=== PATIENT | male | born 1965 | race Caucasian/White ===

== ENCOUNTER → 2023-08-27 | Outpatient (CLI) | payer BC ==
[~2023-08-27] MED LIST: ACYCLOVIR; CIPRO 500MG TA500 MG PO; DEPO-TESTOS100 MG/ML IM; FLOMAX 0.40.4 MG/CAP PO; HYZAAR 12.5 MG-1 TAB PO; LEVSIN0.125 M1 PO; LOPID 600M600 MG/TAB PO; NORCO 325 MG-51 TAB PO; NORVASC 5MG5 MG/TAB PO; PERCOCET 325 MG1 TA2 PO; TESTOSTERONE TD; ULTRAM 50MG TAB50 MG PO; ZOFRAN ODT4 MG PO; ZOVIRAX400 MG PO
== END ==
LOC: COL.RAD 11:13
DX: M25.571 Pain in right ankle and joints of right foot (principal); M25.471 Effusion, right ankle